=== PATIENT | male | born 1965 | race Caucasian/White ===

== ENCOUNTER 2016-10-27 01:11 | Emergency (ER) | payer MEDICARE ==
[2016-10-27 06:39] LABS: HEMOGLOBIN 14.7 gm/dl (14.0-17.5); RED BLOOD COUNT 4.51 M/UL (4.20-5.50); WHITE BLOOD COUNT 9.5 K/UL (4.5-11.0)
[2016-10-27 07:04] LABS: BUN/CREATININE RATIO 11 (0-10)
== END 2016-10-27 12:10 | disposition home or self-care (01) ==
LOC: ER1 01:11
PROVIDERS: Student in an Organized Health Care Education/Training Program
DX: R51 Headache (principal); M54.2 Cervicalgia; R07.9 Chest pain, unspecified; R11.2 Nausea with vomiting, unspecified; R42 Dizziness and giddiness; E11.9 Type 2 diabetes mellitus without complications; E03.9 Hypothyroidism, unspecified; M54.9 Dorsalgia, unspecified; G89.29 Other chronic pain; Z87.891 Personal history of nicotine dependence; Z88.6 Allergy status to analgesic agent; Z88.8 Allergy status to other drugs, medicaments and biological substances; Z79.891 Long term (current) use of opiate analgesic; Z79.84 Long term (current) use of oral hypoglycemic drugs; Z79.899 Other long term (current) drug therapy
CPT/HCPCS: 36415; 70450; 71010; 80053; 81001; 82550; 82553; 83874; 84484; 85025; 85379; 87086; 93005; 96361; 96374; 99284; J3360

== ENCOUNTER 2020-09-23 17:13 | Emergency (ER) | payer OTHER ==
[2020-09-23 19:20] LABS: RED BLOOD COUNT 4.58 M/UL (4.20-5.50); WHITE BLOOD COUNT 7.6 K/UL (4.5-11.0)
[2020-09-23 19:42] LABS: BUN/CREATININE RATIO 9 (0-10)
== END 2020-09-23 21:07 | disposition home or self-care (01) ==
LOC: ER1 17:13
PROVIDERS: Family Medicine
DX: R10.31 Right lower quadrant pain (principal); R11.2 Nausea with vomiting, unspecified; E11.9 Type 2 diabetes mellitus without complications; Z88.1 Allergy status to other antibiotic agents
CPT/HCPCS: 80053; 81001; 83690; 85025; 96374; 96375; 99284; J2270; J2405